=== PATIENT | male | born 1965 | race Caucasian/White ===

== ENCOUNTER → 2023-07-21 06:20 | Day surgery (SDC) | payer BC, SELFPAY ==
[2023-07-21 07:51] LABS: Glucose - Point of Care 239 mg/dl (70-99)
== END ==
LOC: GI 06:20
PROVIDERS: ATTENDING PHYSICIAN Internal Medicine; FAMILY PHYSICIAN Family Medicine
DX: Z12.11 Encounter for screening for malignant neoplasm of colon (principal); D12.3 Benign neoplasm of transverse colon; D12.4 Benign neoplasm of descending colon; D12.7 Benign neoplasm of rectosigmoid junction; K63.5 Polyp of colon; K63.89 Other specified diseases of intestine
CPT/HCPCS: 45385; 45380; 88305; 82962

== ENCOUNTER 2024-07-23 06:20 | Day surgery (SDC) | payer BC, SELFPAY ==
[2024-07-23 07:12] LABS: Glucose - Point of Care 191 mg/dl (70-99)
== END 2024-07-23 08:47 | disposition home or self-care (01) ==
LOC: GI 06:20
PROVIDERS: ATTENDING PHYSICIAN Internal Medicine; FAMILY PHYSICIAN Family Medicine
DX: Z12.11 Encounter for screening for malignant neoplasm of colon (principal); D12.0 Benign neoplasm of cecum; K62.1 Rectal polyp; K57.30 Diverticulosis of large intestine without perforation or abscess without bleeding; Z86.0100 Personal history of colon polyps, unspecified
CPT/HCPCS: 45385; 45380; 88305; 82962